=== PATIENT | female | born 1985 | race Caucasian/White ===

== ENCOUNTER 2017-06-21 20:45 | Emergency (ER) | payer MEDICAID ==
[2017-06-21 20:45] VITALS: BMI 37.8
--- NOTE | 2017-06-21 21:13 | ED PDOC ---
Arrival/HPI - General Chief Complaint: Lower Extremity Problem/Injury Time Seen by Provider: 06/21/17 21:04 Historian: Patient, Family (Brother) - History of Present Illness Time/Duration: Other (Several hours) Symptom Onset: Sudden Symptom Course: Worsening Quality: Aching Severity Level: Moderate Associated Symptoms (Text): 06/21/17 21:12 Patient reports that she was bending over to get something out of her son's stroller and she pushed off with her right foot injuring her dorsal foot. No ankle injury. She has pain with weightbearing and movement. No other injury or trauma. Past Medical History - Infectious Disease Hx of Infectious Diseases: None - Past Medical History Past Medical History: No Previous - Psychiatric Hx Depression: No Hx Emotional Abuse: No Hx Physical Abuse: No Hx Substance Use: No - Past Surgical History Past Surgical History: No Previous - Suicidal Assessment Feels Threatened In Home Enviroment: No Family/Social History - Physician Review Nursing Documentation Reviewed: Yes Family/Social History: Unknown Family HX Smoking Status: Never Smoked Hx Alcohol Use: No Hx Substance Use: No Hx Substance Use Treatment: No Allergies/Home Meds Allergies/Adverse Reactions: Allergies No Known Allergies Allergy (Verified 04/26/12 01:51) Review of Systems - Physician Review All systems were reviewed & negative as marked: Yes Physical Exam Vital Signs Pulse Resp BP Pulse Ox 06/21/17 21:40 74 18 97/57 L 100 - Systems Exam Lower Extremity: Present: Normal Inspection, NORMAL PULSES, Normal ROM, Tenderness, Swelling, Neurovascularly Intact, Other (Dorsal right foot pain and tenderness and swelling. Ankle is normal. Calf is normal.). No: Edema, CALF TENDERNESS, Cyanosis, Ninoska's Sign, Erythema, Deformity Skin: Present: Warm, Dry, Normal Color. No: Rashes Medical Decision Making - RAD Interpretation Radiology Orders: 06/21/17 21:10 FOOT RIGHT 3 VIEWS ROUTINE [RAD] Stat X-ray foot 3 view shows no fracture or dislocation. Atm Technician: ED Physician Disposition/Present on Arrival - Present on Arrival Any Indicators Present on Arrival: No History of DVT/PE: No History of Uncontrolled Diabetes: No Urinary Catheter: No History of Decub. Ulcer: No History Surgical Site Infection Following: None - Disposition Have Diagnosis and Disposition been Completed?: Yes Diagnosis: Foot sprain Disposition: HOME/ ROUTINE Disposition Time: 21:41 Patient Plan: Discharge Condition: GOOD Discharge Instructions (ExitCare): Foot Sprain (DC) Additional Instructions: Rest ice and elevation. Follow-up with PMD. Follow up in ER as needed. Tylenol as directed on bottle as needed. Prescriptions: Naproxen [Naprosyn] 500 mg PO BID #14 tab Referrals: Fani Arce MD [Primary Care Provider] - Follow up with primary Forms: [facility] (Algerian), WORK NOTE
[2017-06-21 21:40] VITALS: BP 97/57; PULSE 74; RESP 18; O2SAT 100
--- NOTE | 2017-06-22 10:33 | RAD ---
PROCEDURE: Right Foot Radiographs. HISTORY: trauma COMPARISON: None. FINDINGS: BONES: Normal. No fracture. JOINTS: Normal. SOFT TISSUES: Normal. OTHER FINDINGS: None. IMPRESSION: Normal right foot radiographs.
== END 2017-06-21 21:50 | disposition home or self-care (01) ==
LOC: ED 20:45
DX: S93.601A Unspecified sprain of right foot, initial encounter (principal); X58.XXXA Exposure to other specified factors, initial encounter